=== PATIENT | female | born 1990 | race African-American/Black ===

== ENCOUNTER 2018-07-05 13:55 | Outpatient (CLI) | payer BC ==
[2018-07-05 15:12] VITALS: BP 125/82; PULSE 87; RESP 16; TEMP 98.3
--- NOTE | 2018-07-23 07:32 | P.MSEPDOC ---
Presenting Problems - Arrival Data Date of Arrival on Unit: 07/05/18 Time of Arrival on Unit: 14:10 Mode of Transport: Wheelchair - Complaint OB-Reason for Admission/Chief Complaint: Possible Onset of Labor Comment: contx all week end. getting stronger Medical History - Information : 1 Para: 0 Term: 0 : 0 Abortions: Spontaneous or Elective: 0 Number of Living Children: 0 - Gestational Age Gestational Age by GILMER (wks/days): 38 Weeks and 5 Days Review of Systems - Review of Systems Constitutional: No problems Breast: No problems ENT: No problems Cardiovascular: No problems Respiratory: No problems Gastrointestinal: No problems Genitourinary: No problems Musculoskeletal: No problems Neurological: No problems Skin: No problems Vital Signs - Temperature Temperature: 98.3 F Temperature Source: Tympanic - Pulse Right Radial Pulse Rate: 87 Pulse Assessment Method: Automatic Cuff - Respirations Respiratory Rate: 16 Oxygen Delivery Method: Room Air - Blood Pressure Right Arm Blood Pressure: 125/82 Blood Pressure Mean: 96 Blood Pressure Source: Automatic Cuff Medical Screen Scoring (Pre) - Cervical Exam Dilation: 1-3 cm = 1 Effacement: More than 50% = 2 Membranes: Intact - Uterine Contractions Frequency: > 5 minutes apart = 1 Duration: N/A Intensity: N/A - Maternal Vital Signs Maternal Temperature: N/A Maternal Blood Pressure: N/A Signs of Preeclampsia: N/A Maternal Respirations: N/A - Pain Assessment Pain Location and Character: Lower, Abdomen Pain Scale Used: Numeric (1 - 10) Pain Intensity: 7 Pain Description: Cramping Pain Frequency: Intermittent - Maternal Trauma Maternal Trauma: N/A - Assessment Baseline FHR: 140 Heart Rate - NICHD Category: Category I (Normal) = 0 NST: Reactive Position: N/A Station: N/A - Total Score Total Score (Pre): 4 - Level of Risk Level of Risk: Low (0-5) Physician Notification (Pre) - Physician Notified Physician Notified Date: 07/05/18 Physician Notified Time: 14:20 Physician/Practitioner Notifed:: yonatan Spoke With: yonatan New Order Received: Yes (observe 1 hour recheck) Physician Notification (Post) - Physician Notified Physician Notified Date: 07/05/18 Physician Notified Time: 15:55 Physician/Practitioner Notified:: yonatan Spoke With: yonatan New Order Received: Yes (discharge home with instructions) - Notification Comment Comment: vs wnl. cervix unchanged. reactive nst. discharge instructions given Disposition - Disposition OB Disposition: Discharge to home Discharge Date: 07/05/18 Discharge Time: 16:00 I agree with the RN Medical Screening Exam: Yes Risk & Benefit of care provided described in d/c instruction: Yes Diagnosis: FALSE LABOR AT OR AFTER 37 COMPLETED WEEKS OF GESTATION
== END 2018-07-05 16:00 | disposition home or self-care (01) ==
LOC: FBPOP 13:55
PROVIDERS: ATTEND Obstetrics & Gynecology
DX: O47.1 False labor at or after 37 completed weeks of gestation (principal); Z3A.38 38 weeks gestation of pregnancy
CPT/HCPCS: 59025; 84112; 99213

== ENCOUNTER 2018-07-06 16:14 | Inpatient (IN) | payer BC ==
[2018-07-06] MEDS ORDERED: LIDOCAINE 0.5% (PF) 5 MG/ML (50 ML SDV) SQ PRN (16:59)
[2018-07-06] MEDS ORDERED: TERBUTALINE 1 MG/ML VIAL SQ PRN (16:59)
[2018-07-06] MEDS ORDERED: METHYLERGONOVINE 0.2 MG/ML 1 ML AMP IM PRN (16:59)
[2018-07-06] MEDS ORDERED: OXYTOCIN 10 UNIT/ML 1 ML VIAL IM PRN (16:59)
[2018-07-06] MEDS ORDERED: CARBOPROST TROMETHAMINE 250 MCG/ML 1 ML AMP IM PRN (16:59)
[2018-07-06] MEDS: LACTATED RINGERS 1,000 ML IV SCH ×2 (17:00→17:45)
--- NOTE | 2018-07-06 17:09 | P.HPOB ---
History of Present Illness H&P Date: 07/06/18 Chief Complaint: IUP at 38-5/7 weeks, active labor This is a 27-year-old 1 para 0 at 38-5/7 weeks that presents in active labor. Patient states she's been bang since yesterday and they became stronger so she presented to OB. Patient has had routine care with Dr. Christiansen sevenths 10 weeks of gestation. Uncomplicated care is noted. She is known to have sickle cell trait has been taking iron occasionally. Next On blood work showed a blood type of AB+, rubella immune, RPR nonreactive, hepatitis B surface antigen negative, HIV negative, she did pass her 1 hour Glucola and group beta strep was noted to be negative. Review of Systems Constitutional: Reports fatigue, Denies chills, Denies fever Cardiovascular: Reports leg edema Gastrointestinal: Denies constipation, Denies diarrhea, Denies nausea, Denies vomiting Genitourinary: Reports Past Medical History History of Any Multi-Drug Resistant Organisms: None Reported Smoking Status: Never smoker Medications and Allergies Home Medications Medication Instructions Recorded Confirmed Type Iron 1 tab PO DAILY MDD 1 07/05/18 07/05/18 History Allergies Allergy/AdvReac Type Severity Reaction Status Date / Time No Known Allergies Allergy Verified 07/05/18 14:13 Exam Osteopathic Statement: *. No significant issues noted on an osteopathic structural exam other than those noted in the History and Physical/Consult. - OBG Physical Exam Abdomen: Gravid and appropriate for gestational age Cervix: 8/100/-2 intact membrane palpated by RN Uterus: enlarged Anus/Rectum: normal perianal skin Assessment and Plan (1) Term Current Visit: Yes Status: Acute Code(s): Z34.80 - ENCOUNTER FOR SUPRVSN OF NORMAL , UNSP TRIMESTER SNOMED Code(s): 55331991 (2) Active labor Current Visit: Yes Status: Acute Code(s): TZQ2691 - SNOMED Code(s): 31048377 Plan: We'll admit to labor and delivery for expectant management, patient does request an epidural at this time. Anticipate spontaneous vaginal delivery.
[2018-07-06] MEDS ORDERED: SODIUM CHLORIDE 0.9% 100 ML BAG ONE (17:30)
[2018-07-06] MEDS ORDERED: ROPIVACAINE 5MG/ML 20ML VIAL ONE (17:30)
[2018-07-06] MEDS ORDERED: fentaNYL (PF) 50 MCG/ML 5 ML AMP ONE (17:30)
[2018-07-06 17:40] LABS: Basophils % (A) 0 %; Eosinophils % (A) 1 %; HCT 37.1 % (34.0-46.0); HGB 11.9 gm/dL (11.4-16.0); Lymphocytes # (A) 1.4 k/uL (1.0-4.8); Lymphocytes % (A) 15 %; MCH 26.7 pg (25.0-35.0); MCHC 32.2 g/dL (31.0-37.0); MCV 83.2 fL (80.0-100.0); Mean Platelet Volume 8.5; Monocytes # (A) 0.6 k/uL (0-1.0); Monocytes % (A) 6 %; Neutrophils # (A) 6.9 k/uL (1.3-7.7); Neutrophils % (A) 77 %; Platelet Count 161 k/uL (150-450); RBC 4.46 m/uL (3.80-5.40); RDW 15.1 % (11.5-15.5)
[2018-07-06] MEDS ORDERED: OXYTOCIN 20 UNITS/1000 ML NS 1,000 ML IV SCH ×2 (18:25→20:30)
[2018-07-06 18:58] VITALS: BMI 25.0
[2018-07-06] MEDS ORDERED: HYDROCORTISONE 2.5% RECTAL CREAM 30 GM TUBE RECTAL PRN (20:23)
[2018-07-06] MEDS ORDERED: ACETAMINOPHEN TAB 325 MG TAB PO PRN (20:23)
[2018-07-06] MEDS ORDERED: BENZOCAINE/MENTHOL SPRAY 1 GM/SPRAY AEROSOL TOPICAL PRN (20:23)
[2018-07-06] MEDS ORDERED: diphenhydrAMINE 50 MG CAP PO PRN (20:23)
[2018-07-06] MEDS ORDERED: SIMETHICONE 80 MG CHEWABLE PO PRN (20:23)
[2018-07-06] MEDS ORDERED: IBUPROFEN 600 MG TAB PO PRN (20:23)
[2018-07-06] MEDS ORDERED: ZOLPIDEM 5 MG TAB PO PRN (20:23)
[2018-07-06] MEDS ORDERED: diphenhydrAMINE 50 MG/ML 1 ML VIAL IVP PRN ×2 (20:23)
[2018-07-06] MEDS ORDERED: diphenhydrAMINE 25 MG CAP PO PRN (20:23)
[2018-07-06] MEDS ORDERED: WITCH HAZEL 1 EACH MED..PAD TOPICAL PRN (20:23)
[2018-07-06] MEDS ORDERED: LANOLIN CREAM 5 GM TUBE TOPICAL PRN (20:23)
--- NOTE | 2018-07-06 20:26 | P.PROBDLV ---
Vaginal Delivery Note - . Vaginal Delivery Note: This is a very pleasant 27-year-old 1 para 0 at 38-6/7 weeks that presented to labor and delivery in active labor. Patient states she's been bang since yesterday afternoon and noticed the contractions were getting closer and more uncomfortable therefore she came in. Patient denied loss of fluid or vaginal bleeding. Patient has been receiving routine care with Dr. Christiansen. Patient was admitted to labor and delivery with a cervical exam of 8-9 cm. Patient was very uncomfortable and requested epidural. Epidural was placed per anesthesia and amniotomy was performed yielding clear fluid. Patient was noted to be 9 cm and contractions had spaced therefore Pitocin augmentation of labor was begun patient progressed to complete began pushing and had a normal spontaneous vaginal delivery at 2002. Patient delivered a viable female infant of 6 lbs. 9 oz. with Apgars of 9 and 10 at one and 5 minutes respectively. After a two-minute delayed the umbilical cord was doubly clamped and cut. The placenta was then delivered spontaneously intact with a three-vessel cord being noted. Afterwards on inspection of the patient' s vaginal vault a second-degree midline laceration along with a periurethral laceration were noted. The midline laceration was repaired with 3-0 Rapide in the usual fashion. The periurethral laceration was noted to be bleeding therefore a [id number] suture was needed to obtain hemostasis. Next Estimated blood loss 300 mL, all counts were correct 2 at the end of the delivery. Patient and tolerated delivery well and are resting comfortably.
[2018-07-07 07:54] LABS: Basophils % (A) 0 %; Eosinophils # (A) 0.1 k/uL (0-0.7); Eosinophils % (A) 1 %; HCT 30.5 % (34.0-46.0); HGB 10.2 gm/dL (11.4-16.0); Lymphocytes # (A) 1.5 k/uL (1.0-4.8); Lymphocytes % (A) 17 %; MCH 27.9 pg (25.0-35.0); MCHC 33.6 g/dL (31.0-37.0); MCV 83.1 fL (80.0-100.0); Monocytes # (A) 0.5 k/uL (0-1.0); Monocytes % (A) 6 %; Neutrophils # (A) 6.4 k/uL (1.3-7.7); Neutrophils % (A) 75 %; Platelet Count 143 k/uL (150-450); RBC 3.67 m/uL (3.80-5.40); RDW 15.1 % (11.5-15.5); WBC 8.6 k/uL (3.8-10.6)
--- NOTE | 2018-07-07 07:56 | P.DS ---
Providers Date of admission: 07/06/18 16:37 Expected date of discharge: 07/07/18 Attending physician: Angy Norwood Primary care physician: Stated None Hospital Course: This is a 27-year-old female 1 para 0 EDC 07/14/2018 at 38-6/7 weeks' gestation. Patient presented last evening in spontaneous active labor. is essentially unremarkable, group B strep cultures negative, blood type AB+, rubella status immune. Please see dictated history and physical for details. Artificial amniorrhexis revealed clear fluid. Epidural was placed per her request. She went on to deliver a liveborn female with scores of 9 and 10 at one and 5 minutes respectively. She had a small periurethral laceration. Infant weighed 6 lbs. 9 oz. or 2970 g. Please see dictated delivery note for details. This morning the patient is doing well. She is voiding, ambulating and passing flatus without difficulty. Vital signs are stable and she is afebrile. Fundus is firm and in the midline, symmetric and 18 week size. Extremities are negative for edema. [place] infant is doing well. Patient is judged to be in very good condition for discharge home. She will follow-up with me in the office in 6 weeks. I have given her prescription for a double electric breast pump. She will call the office with any fevers shakes or chills, foul smelling or copious lochia, with the passage of large blood clots, with any pain not alleviated by [id number] products, or indeed with any concerns. We have briefly discussed options for contraception and we will discuss this further in the office. Patient Condition at Discharge: Good Plan - Discharge Summary Discharge Rx Participant: No New Discharge Prescriptions: No Action Iron 1 tab PO BID MDD 1 Discharge Medication List Iron 1 tab PO BID MDD 1 07/05/18 [History] Follow up Appointment(s)/Referral(s): Angy Norwood MD [STAFF PHYSICIAN] - 6 Weeks Discharge Disposition: HOME SELF-CARE
[2018-07-07] MEDS ORDERED: SENNOSIDES-DOCUSATE SODIUM 1 EACH TAB PO SCH (08:00)
[2018-07-07] MEDS ORDERED: FERROUS SULFATE 325 MG TAB PO SCH (09:00)
[2018-07-07 18:21] VITALS: BP 110/69; PULSE 74; RESP 18; TEMP 98.3
== END 2018-07-07 21:15 | disposition home or self-care (01) | DRG 807 ==
LOC: FBPOP 16:14 → 4FBP 16:37
PROVIDERS: ADMIT Obstetrics & Gynecology Obstetrics; ATTEND Obstetrics & Gynecology
PROC: 10E0XZZ Delivery of Products of Conception, External Approach (ICD-10-PCS; principal; 2018-07-06)
PROC: 0KQM0ZZ Repair Perineum Muscle, Open Approach (ICD-10-PCS; 2018-07-06)
DX: O99.12 Other diseases of the blood and blood-forming organs and certain disorders involving the immune mechanism complicating childbirth (principal); Z37.0 Single live birth; D57.3 Sickle-cell trait; O70.1 Second degree perineal laceration during delivery; O71.82 Other specified trauma to perineum and vulva; Z3A.38 38 weeks gestation of pregnancy
CPT/HCPCS: 85025; 86850; 86900; 86901; 88307